=== PATIENT | female | born 1980 | race Caucasian/White ===

== ENCOUNTER 2017-10-10 13:24 | Emergency (ER) | payer SELFPAY ==
[2017-10-10] MEDS ORDERED: LIDOCAINE 1%-EPI 1:100000 30 ML MDV SUBQ STA (15:48)
[2017-10-10] MEDS ORDERED: LIDOCAINE 1%-EPI 1:100000 30 ML MDV ONE (16:03)
--- NOTE | 2017-10-10 16:25 | ED Physician Documentation ---
PD HPI UPPER EXT INJURY - Stated complaint Stated Complaint: LEFT FINGER LAC - Chief complaint Chief Complaint: Laceration - History obtained from History obtained from: Patient - History of Present Illness Location: Left, Finger (index) Type of injury: Laceration Where injury occurred: Home - Additonal information Additional information: The patient is a 37-year-old female who cut the tip of her left index finger while slicing lettuce at home just prior to arrival. She is right-hand dominant. Vaccinations are up-to-date. She denies any other injuries. PD PAST MEDICAL HISTORY - Past Medical History Past Medical History: No - Past Surgical History Past Surgical History: Yes - Present Medications Home Medications: Ambulatory Orders Medication Instructions Recorded Confirmed No Known Home Medications [No 10/10/17 10/10/17 Known Home Medications] - Allergies Allergies/Adverse Reactions: Allergies Allergy/AdvReac Type Severity Reaction Status Date / Time No Known Drug Allergies Allergy Verified 10/10/17 13:50 - Social History Does the pt smoke?: No Smoking Status: Never smoker Does the pt drink ETOH?: Yes Does the pt have substance abuse?: No - Immunizations Immunizations are current?: Yes PD ED PE NORMAL - Vitals Vital signs reviewed: Yes (normal) - General General: Alert and oriented X 3, Well developed/nourished - HEENT HEENT: Atraumatic - Respiratory Respiratory: No respiratory distress - Derm Derm: No rash - Extremities Extremities: Other (The tip of the left index finger has been avulsed distal fingernail. There is a 0.5 cm x 0.25 cm area that does not have skin coverage, and continues to bleed.) - Neuro Neuro: Alert and oriented X 3, No motor deficit, No sensory deficit Results - Vitals Vitals: Oxygen O2 Source Room air Procedures - Regional nerve block Nerve block site: Digital - note digit(s) (left index finger) Right / left: Left Nerve block anesthesia: Lidocaine 1% Nerve block aftercare: Excellent anesthesia, No complications PD MEDICAL DECISION MAKING - ED course Complexity details: considered differential, d/w patient, d/w family ED course: The patient's presentation is significant for avulsion of her distal fingertip, left index finger. Skin is not present to provide coverage over the wound. Treatment in the emergency department included digital block using 1% lidocaine. After the wound was thoroughly cleaned, Gelfoam and tube gauze dressing were applied. I discussed with the patient and her mother the expected course of healing, appropriate wound care, as well as potentially worrisome signs or symptoms that should prompt reevaluation in the emergency department. - Sepsis Event Vital Signs: Oxygen O2 Source Room air Departure - Departure Disposition: 01 Home, Self Care Clinical Impression: Fingertip avulsion Qualifiers: Encounter type: initial encounter Qualified Code(s): S61.209A - Unspecified open wound of unspecified finger without damage to nail, initial encounter Condition: Stable Instructions: ED Laceration Amputation Finger Tip Open Tx Comments: Keep the initial tube gauze dressing in place for 2 or 3 days, and then replaced the wound dressing daily after that. Use Tylenol or ibuprofen if needed for discomfort. Return to the emergency department if you develop any sign of an infection, or otherwise worsening symptoms. Discharge Date/Time: 10/10/17 16:43
[2017-10-10 16:45] VITALS: BP 117/88
== END 2017-10-10 16:43 | disposition home or self-care (01) ==
LOC: ED 13:24
DX: S61.211A Laceration without foreign body of left index finger without damage to nail, initial encounter (principal); W26.0XXA Contact with knife, initial encounter; Y93.G1 Activity, food preparation and clean up; Y92.000 Kitchen of unspecified non-institutional (private) residence as the place of occurrence of the external cause
CPT/HCPCS: 64450; 99283

== ENCOUNTER → 2020-02-05 | Emergency (ER) | payer SELFPAY | LOC: EDUNIT# → EDBD → ED 17:04 | DX: Z53.9 Procedure and treatment not carried out, unspecified reason (principal) ==